=== PATIENT | male | born 1945 | race American Indian/Alaskan Native ===

== ENCOUNTER → 2025-02-02 | Outpatient (CLI) | payer MEDICAID, SELFPAY ==
--- NOTE | 2025-02-02 09:45 | XR_ITS ---
Examination: Abdomen sonogram, Limited Date and time of exam: February 02, 2025 0948 hours INDICATIONS: Elevated liver function tests on laboratory examination this week Technique: Real-time roman scale transabdominal sonographic images of the upper abdomen obtained. Findings: Normal gallbladder Normal common bile duct 0.3 cm Pancreatic head 2.1 cm Liver 11.5 cm fatty infiltration lobular contour 13 mm right lobe liver cyst Normal hepatopedal portal venous flow Patent IVC IMPRESSION: Normal gallbladder Suspect primary hepatocellular disease, fatty infiltration, no solid liver lesions
== END | disposition home or self-care (01) ==
PROVIDERS: PCP Internal Medicine; Referring Provider Internal Medicine; Visit Provider Internal Medicine
DX: K76.0 Fatty (change of) liver, not elsewhere classified (principal)
CPT/HCPCS: 76705